=== PATIENT | female | born 1975 | race Caucasian/White ===

== ENCOUNTER 2019-12-14 10:59 | Outpatient (CLI) | payer MEDICARE, SELFPAY ==
--- NOTE | 2019-12-14 11:20 | XR_ITS ---
WS: [id number] HIP WITH PELVIS RIGHT TECHNIQUE: 3 views of the right hip with pelvis CLINICAL INFORMATION: pain right hip COMPARISON: None. FINDINGS: Intramedullary magdi and screw fixation right hip. Distal femoral magdi is intact. Healed right hip fract ure with callus formation. No evidence of hardware loosening. Normal partially visualized right pubic rami. XR/XR hip RT 2-3V wo/w pel* [id number] IMPRESSION: 1. Healed right hip fracture with callus formation and intramedullary magdi and screw fixation. 2. No evidence of hardware loosening.
== END 2019-12-14 11:00 | disposition home or self-care (01) ==
LOC: RADWPI 11:04
PROVIDERS: Family Provider Family Medicine; PCP Family Medicine; Visit Provider Family Medicine
DX: M25.551 Pain in right hip (principal)
CPT/HCPCS: 73502

== ENCOUNTER → 2019-12-26 13:06 | Outpatient (BNVA) | payer MEDICARE, SELFPAY | PROVIDERS: Family Provider Family Medicine; PCP Family Medicine; Referring Provider Family Medicine; Visit Provider Podiatrist Foot & Ankle Surgery | DX: M79.671 Pain in right foot (principal); S92.321A Displaced fracture of second metatarsal bone, right foot, initial encounter for closed fracture; X58.XXXA Exposure to other specified factors, initial encounter | CPT/HCPCS: 73630 ==

== ENCOUNTER → 2020-01-16 14:04 | Outpatient (BNVA) | payer MEDICARE, SELFPAY | PROVIDERS: Family Provider Family Medicine; PCP Family Medicine; Visit Provider Podiatrist Foot & Ankle Surgery | DX: M79.671 Pain in right foot (principal); M84.374G Stress fracture, right foot, subsequent encounter for fracture with delayed healing | CPT/HCPCS: 73630 ==

== ENCOUNTER → 2020-02-13 13:56 | Outpatient (BNVA) | payer MEDICARE, SELFPAY | PROVIDERS: Family Provider Family Medicine; PCP Family Medicine; Visit Provider Podiatrist Foot & Ankle Surgery | DX: M84.374G Stress fracture, right foot, subsequent encounter for fracture with delayed healing (principal); X58.XXXD Exposure to other specified factors, subsequent encounter | CPT/HCPCS: 73630 ==

== ENCOUNTER → 2020-03-18 13:18 | Outpatient (BNVA) | payer MEDICARE, SELFPAY | PROVIDERS: Family Provider Family Medicine; PCP Family Medicine; Visit Provider Podiatrist Foot & Ankle Surgery | DX: M84.374G Stress fracture, right foot, subsequent encounter for fracture with delayed healing (principal); X58.XXXD Exposure to other specified factors, subsequent encounter | CPT/HCPCS: 73630 ==

== ENCOUNTER → 2020-05-07 11:08 | Outpatient (BNVA) | payer MEDICARE, SELFPAY | PROVIDERS: Family Provider Family Medicine; PCP Family Medicine; Visit Provider Family Medicine | DX: I10 Essential (primary) hypertension (principal); E78.00 Pure hypercholesterolemia, unspecified; E66.9 Obesity, unspecified; G89.21 Chronic pain due to trauma; Z72.0 Tobacco use | CPT/HCPCS: 80053; 80061; 85025 ==

== ENCOUNTER → 2020-12-24 11:38 | Outpatient (BNVA) | payer MEDICARE, SELFPAY | PROVIDERS: Family Provider Family Medicine; PCP Family Medicine; Visit Provider Family Medicine | DX: E78.00 Pure hypercholesterolemia, unspecified (principal); I10 Essential (primary) hypertension; G89.21 Chronic pain due to trauma | CPT/HCPCS: 80053; 80061 ==

== ENCOUNTER 2021-04-18 21:36 | Emergency (ER) | payer MEDICARE, SELFPAY ==
[2021-04-18 21:58] VITALS: BP 128/91; PULSE 95; RESP 16; TEMP 36.9; O2SAT 96; BMI 32.8
--- NOTE | 2021-04-18 22:11 | XRR_ITS ---
PROCEDURE INFORMATION: Exam: XR Right Tibia and Fibula Exam date and time: 04/18/2021 10:11 PM Age: 45 years old Clinical indication: Lower leg; Prior surgery; Patient HX: Dog ran into her and knocked her down Wednesday, right knee pain; Additional info: Fracture TECHNIQUE: Imaging protocol: XR Right tibia and fibula. Views: 2 views. COMPARISON: No relevant prior studies available. FINDINGS: Bones/joints: Mild to moderate joint effusion. Intra-articular right lateral tibial plateau with 1.5 mm of depression. Intramedullary magdi in the distal femur. Soft tissues: Normal. XR/XR tibia fibula RT 2V [id number] IMPRESSION: 1. Mild to moderate joint effusion. 2. Intra-articular right lateral tibial plateau with 1.5 mm of depression.
--- NOTE | 2021-04-18 22:12 | W.ED.EXTPRO ---
HPI - Extremity Problem General: Chief complaint: Extremity Injury, Lower Stated complaint: RLE BREAK, MORE PAIN(SEEN AT [facility] . Time Seen by Provider: 04/18/21 22:07 History of Present Illness: HPI Narrative: 45-year-old female comes in today for injury to the right leg. Patient was seen at [facility] Wednesday night early morning for an injury when her dog ran into the leg. Patient had significant pain and discomfort. It was found the patient had a lateral condyle tibial fracture. Patient had contacted orthopedics office for follow-up but needed a referral for further treatment and evaluation. Patient coming to the ER for continued care. Review of Systems General: Reports: 10 or more systems reviewed and unremarkable except in HPI and below Musc: Reports: other (right knee injury) [facility] ED PFSH: Medical History Chronic pain due to injury Fibromyalgia Hypercholesteremia Hypertension Nicotine abuse Obesity (BMI 35.0-39.9 without comorbidity) Surgical History History of hip surgery History of total knee replacement Social History Smoking and tobacco status: current every day smoker Alcohol intake: current Alcohol intake frequency: holidays/special occasions only Physical Exam Const: COMMON NORMALS: no acute distress and patient oriented x3 GENERAL APPEARANCE: cooperative HENMT: COMMON NORMALS: normocephalic and Normal external nose present HEAD & SCALP: normal to inspection and normocephalic NOSE: Normal external nose present Eye: GENERAL EYE: appearance normal, both eyes and all related structures Neck/C-Spine: COMMON NORMALS: full ROM Chest: COMMONS NORMALS: normal inspection of the chest Resp: COMMON NORMALS: normal respiratory effort EFFORT & INSPECTION: Yes able to speak in complete sentences Cardio: COMMON NORMALS: regular rate and regular rhythm RATE: regular rate RHYTHM: regular rhythm GI: COMMON NORMALS: non-tender Extremity: NARRATIVE EXTREMITY EXAM: Tenderness to the right lateral knee. No significant swelling to the distal leg. No significant redness. Pulses and sensation intact. Neuro: COMMON NORMALS: patient oriented x3 and moves all extremities Psych: COMMON NORMALS: mental status grossly normal and cooperative Skin: COMMON NORMALS: no rashes or lesions noted GENERAL SKIN EXAM: no rashes or lesions noted Course Vital Signs: Vital signs: Vital Signs Temperature 98.4 F 04/18/21 21:58 Pulse Rate 95 04/18/21 21:58 Respiratory Rate 16 04/18/21 21:58 Blood Pressure 128/91 04/18/21 21:58 Pulse Oximetry 96 04/18/21 21:58 MDM - Extremity (Nontraumatic) MDM Narrative: Medical decision making narrative: 45-year-old female comes in today with injury to the right knee. Patient was seen at a emergency room in [place] and was diagnosed with a lateral condylar fracture and recommended to follow-up with orthopedics. Patient comes in [facility] to get referral to orthopedist here in [place]. On exam patient has pulses intact distally. Minimal to no swelling is noted to the knee. No signs of redness or DVT is noted. Differential diagnosis fracture, contusion, sprain. X-ray did note the lateral condylar fracture with minimal displacement. Patient will be kept in a knee immobilizer with crutches to help with ambulation. A case management request was placed for further follow-up with orthopedics. Patient reported understanding and agreed to plan. Discharge Plan Discharge Patient Disposition: Home Clinical Impression: Closed fracture of lateral condyle of right tibia Qualifiers: Encounter type: initial encounter Fracture alignment: displaced Qualified Code(s): S82.121A - Displaced fracture of lateral condyle of right tibia, initial encounter for closed fracture Condition: Stable Prescriptions: No Action oxybutynin chloride 5 mg tablet 5 mg PO DAILY RF: 0 amitriptyline 50 mg tablet 50 mg PO DAILY RF: 0 nitroglycerin [Nitrostat] 0.4 mg tablet, sublingual 0.4 mg SUBLINGUAL Q5M PRNRF: 0 isosorbide mononitrate 60 mg tablet extended release 24 hr 60 mg PO DAILY RF: 0 omeprazole 20 mg capsule,delayed release(DR/EC) 20 mg PO DAILY RF: 0 atorvastatin 10 mg tablet 10 mg PO DAILY RF: 0 aspirin [Adult Low Dose Aspirin] 81 mg tablet,delayed release (DR/EC) 81 mg PO DAILY RF: 0 lisinopril 20 mg tablet 40 mg PO DAILY RF: 0 escitalopram oxalate 20 mg tablet 20 mg PO DAILY RF: 0 oxycodone-acetaminophen 10-325 mg tablet 1 tab PO BID PRN (Reason: pain) 30 Days Qty: 38 RF: 0 tramadol 50 mg tablet 100 mg PO BID PRN (Reason: pain) 30 Days Qty: 90 RF: 2 Discharge Orders: Discharge ED (Routine); Ordered 04/18/21 Ordered By: Haider Schaffer Referrals: Hay Craig MD [Primary Care Provider] - Discharge Diet: Usual diet Discharge Activity: Use walker/crutches as instructed Patient Instructions: Leg Fracture (ED), Opioid Safety Activity Restrictions/Additional Instructions: Rest and limit activity as much as possible. Elevate and ice knee for comfort. Use hydrocodone for breakthrough pain. Follow-up with orthopedist at scheduled appointment. Case management will contact you on Wednesday to help with the appointment follow-up. Coding Level of Care Code ED Genetics Nurse for Zaid Wall
[2021-04-18 22:59] VITALS: BP 128/84; PULSE 94; RESP 20; O2SAT 98
--- NOTE | 2021-04-21 08:52 | DCPLANNER ---
transportation project manager had message to schedule a follow up appointment for patient with ortho. transportation project manager called the ortho clinic, spoke with Paty, gave clinic patients information. transportation project manager was told that patients information would be printed and reviewed. Clinic will call patient with appointment information.
--- NOTE | 2021-04-22 14:19 | DCPLANNER ---
Patient had a follow up appointment scheduled for 04.22.21 at [facility] with Dr. Palacios - patient did attend appointment.
== END 2021-04-18 23:00 | disposition home or self-care (01) ==
PROVIDERS: Emergency Provider Nurse Practitioner Family; PCP Family Medicine
DX: S82.121A Displaced fracture of lateral condyle of right tibia, initial encounter for closed fracture (principal); Z79.82 Long term (current) use of aspirin; I10 Essential (primary) hypertension; F17.210 Nicotine dependence, cigarettes, uncomplicated; W54.1XXA Struck by dog, initial encounter
CPT/HCPCS: 73590; 99281; 99282

== ENCOUNTER → 2021-04-22 13:35 | Outpatient (BNVA) | payer MEDICARE, SELFPAY | PROVIDERS: PCP Family Medicine; Referring Provider Nurse Practitioner Family; Visit Provider Orthopaedic Surgery | DX: S82.121A Displaced fracture of lateral condyle of right tibia, initial encounter for closed fracture (principal); X58.XXXA Exposure to other specified factors, initial encounter; Z46.89 Encounter for fitting and adjustment of other specified devices; S82.121D Displaced fracture of lateral condyle of right tibia, subsequent encounter for closed fracture with routine healing; X58.XXXD Exposure to other specified factors, subsequent encounter | CPT/HCPCS: 73562; 97760; L1812 ==

== ENCOUNTER 2021-04-22 14:55 | Outpatient (CLI) | payer MEDICARE, SELFPAY | END 2021-04-22 14:56 | disposition home or self-care (01) | LOC: SPT 14:57 | PROVIDERS: PCP Family Medicine; Visit Provider Orthopaedic Surgery | DX: Z46.89 Encounter for fitting and adjustment of other specified devices (principal); S82.121D Displaced fracture of lateral condyle of right tibia, subsequent encounter for closed fracture with routine healing; X58.XXXD Exposure to other specified factors, subsequent encounter | CPT/HCPCS: 97760; L1812 ==

== ENCOUNTER → 2021-05-08 15:20 | Outpatient (BNVA) | payer MEDICARE, SELFPAY | PROVIDERS: PCP Family Medicine; Visit Provider Orthopaedic Surgery | DX: S82.121A Displaced fracture of lateral condyle of right tibia, initial encounter for closed fracture (principal); G89.21 Chronic pain due to trauma; X58.XXXA Exposure to other specified factors, initial encounter | CPT/HCPCS: 73562 ==

== ENCOUNTER → 2021-05-29 10:55 | Outpatient (BNVA) | payer MEDICARE, SELFPAY | PROVIDERS: PCP Family Medicine; Visit Provider Orthopaedic Surgery | DX: S82.121D Displaced fracture of lateral condyle of right tibia, subsequent encounter for closed fracture with routine healing (principal); X58.XXXD Exposure to other specified factors, subsequent encounter | CPT/HCPCS: 73560; 73565 ==

== ENCOUNTER → 2021-07-08 09:05 | Outpatient (BNVA) | payer MEDICARE, SELFPAY | PROVIDERS: PCP Family Medicine; Visit Provider Orthopaedic Surgery | DX: S82.121D Displaced fracture of lateral condyle of right tibia, subsequent encounter for closed fracture with routine healing (principal); X58.XXXD Exposure to other specified factors, subsequent encounter | CPT/HCPCS: 73560; 73565 ==

== ENCOUNTER → 2022-01-14 13:02 | Outpatient (BNVA) | payer MEDICARE, SELFPAY | PROVIDERS: Family Provider Family Medicine; PCP Family Medicine; Referring Provider Family Medicine; Visit Provider Orthopaedic Surgery | DX: Z96.659 Presence of unspecified artificial knee joint (principal) | CPT/HCPCS: 73560; 73565; 99213 ==

== ENCOUNTER → 2022-06-22 09:47 | Outpatient (BNVA) | payer MEDICARE, SELFPAY | PROVIDERS: Family Provider Family Medicine; PCP Family Medicine; Visit Provider Podiatrist Foot & Ankle Surgery | DX: S92.352A Displaced fracture of fifth metatarsal bone, left foot, initial encounter for closed fracture (principal); X58.XXXA Exposure to other specified factors, initial encounter; R60.0 Localized edema | CPT/HCPCS: 73610; 73630; 99204 ==

== ENCOUNTER → 2022-07-08 09:16 | Outpatient (BNVA) | payer MEDICARE, SELFPAY | PROVIDERS: Family Provider Family Medicine; PCP Family Medicine; Visit Provider Podiatrist Foot & Ankle Surgery | DX: X58.XXXA Exposure to other specified factors, initial encounter (principal); R60.0 Localized edema; S92.352A Displaced fracture of fifth metatarsal bone, left foot, initial encounter for closed fracture | CPT/HCPCS: 73630; 99213 ==

== ENCOUNTER → 2022-07-22 14:08 | Outpatient (BNVA) | payer MEDICARE, SELFPAY | PROVIDERS: Family Provider Family Medicine; PCP Family Medicine; Visit Provider Podiatrist Foot & Ankle Surgery | DX: S92.352A Displaced fracture of fifth metatarsal bone, left foot, initial encounter for closed fracture (principal); R60.0 Localized edema; X58.XXXA Exposure to other specified factors, initial encounter | CPT/HCPCS: 73630 ==

== ENCOUNTER 2022-07-22 14:56 | Outpatient (CLI) | payer MEDICARE, SELFPAY | END 2022-07-22 14:57 | disposition home or self-care (01) | LOC: SPT 14:56 | PROVIDERS: Family Provider Family Medicine; PCP Family Medicine; Visit Provider Podiatrist Foot & Ankle Surgery | DX: Z46.89 Encounter for fitting and adjustment of other specified devices (principal); S92.352D Displaced fracture of fifth metatarsal bone, left foot, subsequent encounter for fracture with routine healing; X58.XXXD Exposure to other specified factors, subsequent encounter | CPT/HCPCS: 97760; 99213; L4361 ==

== ENCOUNTER → 2022-08-21 09:11 | Outpatient (BNVA) | payer MEDICARE, SELFPAY | PROVIDERS: Family Provider Family Medicine; PCP Family Medicine; Visit Provider Podiatrist Foot & Ankle Surgery | DX: X58.XXXA Exposure to other specified factors, initial encounter (principal); R60.0 Localized edema; S92.352A Displaced fracture of fifth metatarsal bone, left foot, initial encounter for closed fracture | CPT/HCPCS: 73630; 99213 ==

== ENCOUNTER → 2023-04-16 10:50 | Outpatient (BNVA) | payer MEDICARE, SELFPAY | PROVIDERS: Family Provider Family Medicine; PCP Family Medicine; Visit Provider Podiatrist Foot & Ankle Surgery | DX: M21.70 Unequal limb length (acquired), unspecified site (principal) | CPT/HCPCS: 99213 ==